=== PATIENT | male | born 1975 | race Caucasian/White ===

== ENCOUNTER 2017-05-20 04:40 | Emergency (ER) | payer OTHER ==
[2017-05-20 04:40] VITALS: BMI 30.7
[2017-05-20] MEDS ORDERED: Aluminum Hydroxide/Magnesium Hydroxide Susp (30 mL) PO STA (05:19)
[2017-05-20] MEDS ORDERED: Aluminum Hydroxide/Magnesium Hydroxide Susp (30 mL) ONE (05:35)
[2017-05-20 05:41] LABS: BASO % 0.6 % (0.0-2.0); EOS # 0.1 K/uL (0.0-0.7); EOS % 2.6 % (0.0-4.0); HEMATOCRIT 40.4 % (35.0-51.0); LYMPH # 1.9 K/uL (1.0-4.3); LYMPH % 42.9 % (20.0-40.0); MEAN CELL VOLUME 86.1 fL (80.0-94.0); MEAN CORPUSCULAR HEMOGLOBIN 30.7 pg (27.0-31.0); MEAN CORPUSCULAR HGB CONC 35.7 g/dL (33.0-37.0); MEAN PLATELET VOLUME 8.2 fL (7.2-11.7); MONO # 0.3 K/uL (0.0-0.8); MONO % 6.9 % (0.0-10.0); NRBC % 0.1 % (0.0-2.0); RED CELL DISTRIBUTION WIDTH 13.1 % (11.5-14.5); URINE BILIRUBIN NEGATIVE (NEGATIVE); URINE BLOOD NEGATIVE (NEGATIVE); URINE COLOR Yellow (YELLOW); URINE GLUCOSE (UA) 3+ mg/dL (Normal); URINE KETONE 1+ mg/dL (NEGATIVE); URINE LEUKOCYTE ESTERASE NEG Leu/uL (Negative); URINE PROTEIN 1+ mg/dL (NEGATIVE); URINE UROBILINOGEN NORMAL mg/dL (0.2-1.0); WBC URINE < 1 /hpf (0-5); WHITE BLOOD COUNT 4.4 K/uL (4.8-10.8)
[2017-05-20 05:46] LABS: CHLORIDE 96 mmol/L (98-107); SODIUM 136 mmol/L (132-148)
[2017-05-20 05:47] LABS: POTASSIUM 3.8 mmol/L (3.6-5.2)
[2017-05-20 05:49] LABS: ALB/GLOB RATIO 1.7 (1.0-2.1); ALKALINE PHOSPHATASE 77 U/L (38-126); ALT/SGPT 47 U/L (21-72); AST/SGOT 19 U/L (17-59); BILIRUBIN,TOTAL 0.6 mg/dL (0.2-1.3); BLOOD UREA NITROGEN 14 mg/dL (9-20); CARBON DIOXIDE 24 mmol/L (22-30); GFR AFRICAN-AMERICAN > 60; GLUCOSE,RANDOM 236 mg/dL (75-110); TOTAL PROTEIN 6.6 g/dL (6.3-8.3)
[2017-05-20 05:50] LABS: CALCIUM 8.3 mg/dl (8.6-10.4)
--- NOTE | 2017-05-20 06:31 | C.PDOC ---
History Of Present Illness 41 year old male with a Hx of appendectomy who presents to the ER with a complaint of diffuse intermittent abdominal pain since Saturday, associated with nausea. Patient states his last bowel movement was on Saturday; he notes he took miralax with no bowel movement. Denies vomiting and diarrhea. Time Seen by Provider: 05/20/17 04:58 Chief Complaint (Nursing): Abdominal Pain History Per: Patient, Family (), Clinical Therapist History/Exam Limitations: no limitations Onset/Duration Of Symptoms: Days Current Symptoms Are (Timing): Still Present Location Of Pain/Discomfort: Diffuse Radiation Of Pain To:: None Quality Of Discomfort: Unable To Describe Associated Symptoms: Nausea. denies: Vomiting, Diarrhea Exacerbating Factors: None Alleviating Factors: None Recent travel outside of the [place]: No Past Medical History Reviewed: Historical Data, Nursing Documentation, Vital Signs Vital Signs: Last Vital Signs Temp 97.6 F 05/20/17 06:32 Pulse 60 05/20/17 06:32 Resp 18 05/20/17 06:32 BP 120/71 05/20/17 06:32 Pulse Ox 97 05/20/17 06:36 - Medical History PMH: Diabetes, HTN, Hypercholesterolemia Surgical History: Appendectomy Family History: States: Unknown Family Hx - Social History Hx Tobacco Use: No Hx Alcohol Use: Yes (SOCIALLY) Hx Substance Use: No - Immunization History Hx Tetanus Toxoid Vaccination: No Hx Influenza Vaccination: No Hx Pneumococcal Vaccination: No Review Of Systems Constitutional: Negative for: Fever, Chills Gastrointestinal: Positive for: Nausea, Abdominal Pain, Constipation. Negative for: Vomiting, Diarrhea Physical Exam - Physical Exam Appears: Non-toxic, No Acute Distress Skin: Normal Color, Warm, Dry Head: Atraumatic, Normacephalic Eye(s): bilateral: Normal Inspection, EOMI Nose: Normal Oral Mucosa: Moist Neck: Normal ROM, Supple Chest: Symmetrical, No Tenderness Cardiovascular: Rhythm Regular Respiratory: Normal Breath Sounds, No Rales, No Rhonchi, No Wheezing Gastrointestinal/Abdominal: Soft, Tenderness (Diffuse), No Guarding, No Rebound Back: No CVA Tenderness, No Vertebral Tenderness Neurological/Psych: Oriented x3, Normal Speech, Normal Cognition ED Course And Treatment - Laboratory Results Result Diagrams: 05/20/17 05:33 05/20/17 05:33 O2 Sat by Pulse Oximetry: 97 (Room air) Pulse Ox Interpretation: Normal - Other Rad Obstructive Series x-ray X-Ray: Interpreted by Me, Viewed By Me Interpretation: Full of stool, no air fluid level Progress Note: Abdominal x-ray ordered. Maalox, toradol, and fleet enema administered. CAse endorsed to [facility] [place] pending BM and re-evaluation. Disposition - Disposition Disposition Time: 06:57 Condition: STABLE Forms: [employer] Connect (Latvian) - Clinical Impression Clinical Impression: Abdominal pain - Scribe Statement The provider has reviewed the documentation as recorded by the Scribe Richard Valente All medical record entries made by the Scribe were at my direction and personally dictated by me. I have reviewed the chart and agree that the record accurately reflects my personal performance of the history, physical exam, medical decision making, and the department course for this patient. I have also personally directed, reviewed, and agree with the discharge instructions and disposition.
[2017-05-20 06:32] VITALS: RESP 18; TEMP 97.6
[2017-05-20 09:24] VITALS: BP 125/71; PULSE 55; O2SAT 100
--- NOTE | 2017-05-20 09:39 | RAD ---
PROCEDURE: Radiographs of the chest and abdomen (obstructive series) HISTORY: abd pain COMPARISON: Chest x-ray performed 04/26/16 FINDINGS: CHEST: Examination limited by habitus and hypoinflation. Heart size appears within normal limits. No focal consolidation, significant pleural effusion, or definite pneumothorax identified.Please note that chest x-ray has limited sensitivity for the detection of pulmonary masses. ABDOMEN AND PELVIS: Nonspecific bowel gas pattern. No definite free air. Moderate constipation. No acute osseous abnormality is detected. IMPRESSION: Moderate constipation.
== END 2017-05-20 09:26 | disposition home or self-care (01) ==
LOC: C.ER 04:40
DX: R10.9 Unspecified abdominal pain (principal)
CPT/HCPCS: 74022; 80053; 81001; 83690; 85025; 96374; 99284; J1885

== ENCOUNTER 2017-09-03 22:49 | Emergency (ER) | payer SELFPAY ==
[2017-09-03 22:50] VITALS: BMI 30.7
--- NOTE | 2017-09-04 00:10 | C.PDOC ---
History Of Present Illness The patient presents to the ED for evaluation of right buttock pain which began 3 days ago. Patient states the pain radiates down his right leg. He denies recent trauma/injury, urinary/ bowel incontinence and extremity numbness/ weakness at this time. Time Seen by Provider: 09/04/17 00:09 Chief Complaint (Nursing): Back Pain History Per: Patient History/Exam Limitations: no limitations Onset/Duration Of Symptoms: Days (3) Current Symptoms Are (Timing): Still Present Quality Of Discomfort: Sharp, "Pain" Severity: Moderate Pain Scale Rating Of: 4 Previous Symptoms: denies: Prior Injury Associated Symptoms: denies: Incontinence, New Weakness, New Numbness Exacerbating Factor(s): Nothing Recent travel outside of the [place]: No Additional History Per: Patient Past Medical History Reviewed: Historical Data, Nursing Documentation, Vital Signs Vital Signs: Last Vital Signs Temp 98.8 F 09/04/17 02:02 Pulse 58 L 09/04/17 02:02 Resp 18 09/04/17 02:02 BP 105/58 L 09/04/17 02:02 Pulse Ox 98 09/04/17 02:02 - Medical History PMH: Diabetes, HTN, Hypercholesterolemia Denies: Chronic Kidney Disease Surgical History: Appendectomy Family History: States: Unknown Family Hx - Social History Hx Tobacco Use: No Hx Alcohol Use: Yes (SOCIALLY) Hx Substance Use: No - Immunization History Hx Tetanus Toxoid Vaccination: No Hx Influenza Vaccination: No Hx Pneumococcal Vaccination: No Review Of Systems Genitourinary: Negative for: Incontinence Musculoskeletal: Positive for: Leg Pain (right), Other (right buttock pain ) Skin: Negative for: Rash, Lesions, Jaundice, Bruising Neurological: Negative for: Weakness, Numbness Physical Exam - Physical Exam Appears: Non-toxic, No Acute Distress Skin: Warm, Dry, Other (4x6cm area of induration to right buttock cleft with erythema. no fluctuance ) Back: Straight Leg Raising (pain with 30 degree raise ) Extremity: Normal ROM, No Tenderness, Capillary Refill (less than 2 seconds ), No Deformity, No Swelling Pulses: Right Dorsalis Pedis: Normal Neurological/Psych: Oriented x3 Gait: Steady ED Course And Treatment - Laboratory Results Result Diagrams: 09/04/17 01:45 09/04/17 01:45 O2 Sat by Pulse Oximetry: 98 (on RA) Pulse Ox Interpretation: Normal Progress Note: Decadron PO and Motrin PO administered. Reevaluation Time: 03:58 Reassessment Condition: Improved Disposition Counseled Patient/Family Regarding: Studies Performed, Diagnosis, Need For Followup, Rx Given - Disposition Referrals: [facility] [Outside] [facility] [Outside] Disposition: HOME/ ROUTINE Disposition Time: 00:09 Condition: FAIR Additional Instructions: Please return if symptoms recur, you have fever, chills or spreading redness Prescriptions: Cephalexin [Keflex] 500 mg PO QID #28 capsule Sulfamethoxazole/Trimethoprim [Bactrim DS 800 mg-160 mg] 1 tab PO BID #14 tab traMADol [Ultram] 50 mg PO QID PRN #20 tab PRN Reason: Pain, Severe (8-10) Instructions: Rectal Abscess (ED) Forms: [employer] Connect (Albanian), Work Excuse Print Language: IRANIAN - Clinical Impression Clinical Impression: Abscess of right buttock - Scribe Statement The provider has reviewed the documentation as recorded by the Marcosibe (Lyn Momin) Provider Attestation: All medical record entries made by the Marcosibsharri were at my direction and personally dictated by me. I have reviewed the chart and agree that the record accurately reflects my personal performance of the history, physical exam, medical decision making, and the department course for this patient. I have also personally directed, reviewed, and agree with the discharge instructions and disposition.
[2017-09-04] MEDS ORDERED: Sodium Chloride 0.9% 500 ML IV ONE (01:26)
[2017-09-04] MEDS ORDERED: Vancomycin 1 gm/NS 200 ml 1 GM/200 ML BAG IVPB STA (01:28)
[2017-09-04] MEDS ORDERED: Piperacill/Tazo 3.375gm in Dex 3.375 GM/50 ML BAG IVPB STA (01:28)
[2017-09-04] MEDS ORDERED: Sodium Chloride 0.9% 1,000 ML ONE (01:46)
[2017-09-04 01:47] LABS: BASO % 0.4 % (0.0-2.0); EOS # 0.1 K/uL (0.0-0.7); EOS % 1.3 % (0.0-4.0); HEMOGLOBIN 14.4 g/dL (12.0-18.0); LYMPH # 1.9 K/uL (1.0-4.3); LYMPH % 18.6 % (20.0-40.0); MEAN CELL VOLUME 86.4 fL (80.0-94.0); MEAN CORPUSCULAR HEMOGLOBIN 30.4 pg (27.0-31.0); MEAN CORPUSCULAR HGB CONC 35.1 g/dL (33.0-37.0); MEAN PLATELET VOLUME 8.3 fL (7.2-11.7); MONO # 0.6 K/uL (0.0-0.8); NEUT # 7.4 K/uL (1.8-7.0); NEUT % 73.7 % (50.0-75.0); RBC 4.73 Mil/uL (4.40-5.90); RED CELL DISTRIBUTION WIDTH 13.1 % (11.5-14.5)
[2017-09-04 01:51] LABS: WHITE BLOOD COUNT 10.1 K/uL (4.8-10.8)
[2017-09-04 01:54] LABS: VENOUS BLOOD GAS PCO2 42 mmHg (40-60); VENOUS BLOOD GAS PO2 53 mm/Hg (30-55)
[2017-09-04 01:59] LABS: BLOOD UREA NITROGEN 21 mg/dL (9-20); CALCIUM 8.6 mg/dl (8.6-10.4); GFR AFRICAN-AMERICAN > 60; GFR NON-AFRICAN AMERICAN > 60
[2017-09-04 02:04] VITALS: RESP 18
[2017-09-04 04:10] VITALS: BP 113/69; PULSE 86; TEMP 98.4; O2SAT 99
== END 2017-09-04 04:10 | disposition home or self-care (01) ==
LOC: C.ER 22:49
DX: L02.31 Cutaneous abscess of buttock (principal); I10 Essential (primary) hypertension; E78.00 Pure hypercholesterolemia, unspecified; E11.9 Type 2 diabetes mellitus without complications
CPT/HCPCS: 80048; 82803; 85025; 87040; 96365; 96366; 96367; 96375; 99285; J1885; J2543; J3370; J7040; J8540

== ENCOUNTER 2017-09-07 00:46 | Inpatient (IN) | payer SELFPAY ==
[2017-09-07 00:51] VITALS: BMI 30.7
[2017-09-07] MEDS ORDERED: Sodium Chloride 0.9% 1,000 ML IV ONE (01:59)
--- NOTE | 2017-09-07 02:00 | C.PDOC ---
History Of Present Illness Patient presents to the ER with a complaint of right buttock pain. He was seen 2 days ago for a right buttock early abscess and was discharge on antibiotics. Patient returns now with more discomfort, fever, and purulent drainage. Denies bleeding, abdominal pain, back pain, nausea, or vomiting. Time Seen by Provider: 09/07/17 01:33 Chief Complaint (Nursing): Abnormal Skin Integrity History Per: Patient History/Exam Limitations: no limitations Onset/Duration Of Symptoms: Days Current Symptoms Are (Timing): Worse Location Of Injury: Right: Buttock (Abscess) Quality Of Symptoms: Painful, Draining Severity: Moderate Pain Scale Rating Of: 5 Recent travel outside of the [place]: No Past Medical History Reviewed: Historical Data, Nursing Documentation, Vital Signs Vital Signs: Last Vital Signs Temp 98.9 F 09/07/17 01:03 Pulse 85 09/07/17 01:03 Resp 18 09/07/17 01:03 BP 106/71 09/07/17 01:03 Pulse Ox 99 09/07/17 03:30 - Medical History PMH: Diabetes, HTN, Hypercholesterolemia Surgical History: Appendectomy Family History: States: No Known Family Hx - Social History Hx Tobacco Use: No Hx Alcohol Use: Yes (SOCIALLY) Hx Substance Use: No - Immunization History Hx Tetanus Toxoid Vaccination: No Hx Influenza Vaccination: No Hx Pneumococcal Vaccination: No Review Of Systems Constitutional: Positive for: Fever. Negative for: Chills Gastrointestinal: Negative for: Nausea, Vomiting, Abdominal Pain Genitourinary: Negative for: Dysuria, Hematuria Musculoskeletal: Positive for: Other (Right buttock pain). Negative for: Back Pain Skin: Positive for: Other (Right buttock abscess) Physical Exam - Physical Exam Appears: Non-toxic Skin: Warm, Dry Head: Normacephalic Oral Mucosa: Moist Chest: Symmetrical, No Tenderness Cardiovascular: Rhythm Regular Respiratory: No Rales, No Rhonchi, No Wheezing Gastrointestinal/Abdominal: Soft, No Tenderness Back: No CVA Tenderness, No Paraspinal Tenderness Extremity: Other (8x12cm area of induration to right buttock with small amount of purulent materal expressed with erythema, tender to palpation) Neurological/Psych: Oriented x3 ED Course And Treatment - Laboratory Results Result Diagrams: 09/07/17 02:13 09/07/17 02:13 O2 Sat by Pulse Oximetry: 99 (Room air) Pulse Ox Interpretation: Normal Progress Note: Blood work ordered. IV fluids, vancomycin, and zosyn. Disposition Discussed With Dr.: Alcon Sen Comment: accepted the pt onhis service and took over the care at 3:30 AM Doctor Will See Patient In The: ED Counseled Patient/Family Regarding: Studies Performed, Diagnosis - Disposition Referrals: Non [facility] Provider, [Primary Care Provider] - Disposition: HOSPITALIZED Disposition Time: 02:00 Condition: FAIR Forms: [employer] (Turkish) - Clinical Impression Clinical Impression: Skin lesion, Abscess, Hyperglycemia - Scribe Statement The provider has reviewed the documentation as recorded by the Scribe Richard Valente All medical record entries made by the Scribe were at my direction and personally dictated by me. I have reviewed the chart and agree that the record accurately reflects my personal performance of the history, physical exam, medical decision making, and the department course for this patient. I have also personally directed, reviewed, and agree with the discharge instructions and disposition. Decision To Admit - Pt Status Changed To: Hospital Disposition Of: Inpatient - Admit Certification Admit to Inpatient:: After my assessment, the patient will require hospitalization for at least two midnights. This is because of the severity of symptoms shown, intensity of services needed, and/or the medical risk in this patient being treated as an outpatient. - InPatient: Physician Admission Certification: I certify that this patient requires 2 or more midnights of care for the following reason:: After my assessment, the patient will require hospitalization for at least two midnights. This is because of the severity of symptoms shown, intensity of services needed, and/or the medical risk in this patient being treated as an outpatient. - . Bed Request Type: Regular Admitting Physician: Alcon Sen Patient Diagnosis: Skin lesion, Abscess, Hyperglycemia
[2017-09-07 02:18] LABS: BASO % 0.3 % (0.0-2.0); EOS # 0.1 K/uL (0.0-0.7); EOS % 0.7 % (0.0-4.0); HEMOGLOBIN 15.3 g/dL (12.0-18.0); LYMPH # 1.7 K/uL (1.0-4.3); LYMPH % 19.7 % (20.0-40.0); MEAN CELL VOLUME 87.3 fL (80.0-94.0); MEAN CORPUSCULAR HEMOGLOBIN 30.7 pg (27.0-31.0); MEAN CORPUSCULAR HGB CONC 35.2 g/dL (33.0-37.0); MEAN PLATELET VOLUME 8.5 fL (7.2-11.7); MONO # 0.8 K/uL (0.0-0.8); MONO % 9.2 % (0.0-10.0); NEUT # 6.1 K/uL (1.8-7.0); NEUT % 70.1 % (50.0-75.0); NRBC % 0.1 % (0.0-2.0); RBC 4.97 Mil/uL (4.40-5.90); WHITE BLOOD COUNT 8.6 K/uL (4.8-10.8)
[2017-09-07] MEDS ORDERED: Piperacill/Tazo 3.375gm in Dex 3.375 GM/50 ML BAG IVPB STA (02:25)
[2017-09-07 02:28] LABS: INR 1.1; PROTHROMBIN TIME 12.1 SECONDS (9.7-12.2)
[2017-09-07] MEDS ORDERED: Vancomycin 1 gm/NS 200 ml 1 GM/200 ML BAG IVPB ONE (02:30)
[2017-09-07] MEDS: Piperacillin/Tazobact 3.375 GM in Sodium Chloride 100 ML IVPB STA ×2 (02:40→02:42)
[2017-09-07 02:43] LABS: VENOUS BLOOD GAS BASE EXCESS -1.9 mmol/L (0.0-2.0); VENOUS BLOOD GAS PCO2 46 mmHg (40-60); VENOUS BLOOD GAS PO2 33 mm/Hg (30-55); VENOUS BLOOD PH 7.33 (7.32-7.43)
[2017-09-07] MEDS ORDERED: Sodium Chloride 0.9% 1,000 ML ONE (02:48)
[2017-09-07 03:17] LABS: BLOOD UREA NITROGEN 15 mg/dL (9-20); CALCIUM 8.8 mg/dl (8.6-10.4); GFR AFRICAN-AMERICAN > 60; GFR NON-AFRICAN AMERICAN > 60
[2017-09-07] MEDS ORDERED: Oxycodone/Acetaminophen 5/325 mg Tab PO PRN (03:50)
[2017-09-07] MEDS ORDERED: POLYETHYLENE GLYCOL 3350 17 GM/Dose PACKET PO PRN (03:56)
--- NOTE | 2017-09-07 04:05 | CP.PCM.HP ---
History of Present Illness - History of Present Illness History of Present Illness: General surgery H & P for Dr. Bette Eli, PGY-1 Pt S & E at bedside. 41M w/PMH sig for DM admitted for R buttock cellulitis/abscess x 1 week. Pt reports worsening redness/pain of Right buttock over the past week. Was seen in ED on 09/04 with Rx for cellulitis given. Cellulitis developed into abscess with subsequent purulent drainage 2 days ago. Pt admits to severe, constant, non radiating right buttock pain, hardness, hot skin, subjective fevers, chills , nausea, but no emesis. Also admits to constipation and OREILLY with fevers. Denies diarrhea, changes in eating habits, chest pain, SOB, abdominal pain, cough, other complaints. PMH: DM PSH: Appendectomy All: NKDA SH: Occasional ETOH use, denies tobacco or illicit drug use Present on Admission - Present on Admission Any Indicators Present on Admission: No History of DVT/PE: No History of Uncontrolled Diabetes: No Urinary Catheter: No Decubitus Ulcer Present: No Review of Systems - Review of Systems All systems: reviewed and no additional remarkable complaints except - Constitutional Constitutional: Chills, Fever, Headache (with fevers). absent: Increased Appetite - EENT Eyes: absent: Change in Vision Ears: absent: Dizziness - Cardiovascular Cardiovascular: absent: Chest Pain - Respiratory Respiratory: absent: Cough - Gastrointestinal Gastrointestinal: Constipation, Nausea. absent: Abdominal Pain, Diarrhea, Vomiting - Musculoskeletal Musculoskeletal: absent: Back Pain - Neurological Neurological: absent: Weakness - Psychiatric Psychiatric: absent: Change in Appetite Past Patient History - Infectious Disease Hx of Infectious Diseases: None - Past Medical History & Family History Past Medical History?: Yes - Past Social History Smoking Status: Never Smoked - CARDIAC Hx Hypercholesterolemia: Yes Hx Hypertension: Yes - PULMONARY Hx Respiratory Disorders: No - NEUROLOGICAL Hx Neurological Disorder: No Other/Comment: AAOX3 - HEENT Hx HEENT Problems: No - RENAL Hx Chronic Kidney Disease: No - ENDOCRINE/METABOLIC Hx Diabetes Mellitus Type 2: Yes - HEMATOLOGICAL/ONCOLOGICAL Hx Blood Disorders: No Hx Blood Transfusions: No - INTEGUMENTARY Hx Dermatological Problems: No - MUSCULOSKELETAL/RHEUMATOLOGICAL Hx Musculoskeletal Disorders: No Hx Falls: No - GASTROINTESTINAL Hx Gastrointestinal Disorders: No - GENITOURINARY/GYNECOLOGICAL Hx Genitourinary Disorders: No - PSYCHIATRIC Hx Substance Use: No - SURGICAL HISTORY Hx Appendectomy: Yes - ANESTHESIA Hx Anesthesia: Yes Hx Anesthesia Reactions: No Hx Malignant Hyperthermia: No Meds Allergies/Adverse Reactions: Allergies Allergy/AdvReac Type Severity Reaction Status Date / Time No Known Allergies Allergy Verified 09/07/17 01:02 Physical Exam - Constitutional Appears: Non-toxic, No Acute Distress - Head Exam Head Exam: ATRAUMATIC, NORMAL INSPECTION, NORMOCEPHALIC - Eye Exam Eye Exam: EOMI, Normal appearance - ENT Exam ENT Exam: Mucous Membranes Moist, Normal Exam - Neck Exam Neck exam: Positive for: Full Rom, Normal Inspection - Respiratory Exam Respiratory Exam: Clear to Auscultation Bilateral, NORMAL BREATHING PATTERN - Cardiovascular Exam Cardiovascular Exam: REGULAR RHYTHM, +S1, +S2 - GI/Abdominal Exam GI & Abdominal Exam: Normal Bowel Sounds, Soft. absent: Tenderness - Extremities Exam Extremities exam: Positive for: normal inspection. Negative for: pedal edema - Back Exam Back exam: NORMAL INSPECTION - Neurological Exam Neurological exam: Alert, CN II-XII Intact, Oriented x3 - Psychiatric Exam Psychiatric exam: Normal Affect, Normal Mood - Skin Skin Exam: Erythema, Warm Additional comments: Right buttock/gluteal cleft with large area of induration - approximately 10 x 6 cm , draining purulent material of inner buttock opening, erythematous, small area of fluctuance on inner aspect, tender to palpation, with increased warmth to area Results - Vital Signs Recent Vital Signs: Last Vital Signs Temp 98.9 F 09/07/17 01:03 Pulse 85 09/07/17 01:03 Resp 18 09/07/17 01:03 BP 106/71 09/07/17 01:03 Pulse Ox 99 09/07/17 03:42 - Labs Result Diagrams: 09/07/17 02:13 09/07/17 02:13 Labs: Laboratory Results - last 24 hr 09/07/17 09/07/17 09/07/17 02:13 02:13 02:13 WBC 8.6 RBC 4.97 Hgb 15.3 Hct 43.4 MCV 87.3 MCH 30.7 MCHC 35.2 RDW 13.0 Plt Count 194 MPV 8.5 Neut % (Auto) 70.1 Lymph % (Auto) 19.7 L Bowman % (Auto) 9.2 Eos % (Auto) 0.7 Baso % (Auto) 0.3 Neut # 6.1 Lymph # 1.7 Bowman # 0.8 Eos # 0.1 Baso # 0.0 PT 12.1 INR 1.1 APTT 26 pO2 VBG pH VBG pCO2 VBG HCO3 VBG Total CO2 VBG O2 Sat (Calc) VBG Base Excess VBG Potassium Glucose Lactate Sodium 126 L Potassium 4.1 Chloride 91 L Carbon Dioxide 27 Anion Gap 13 BUN 15 Creatinine 0.7 L Est GFR ( Amer) > 60 Est GFR (Non-Af Amer) > 60 Random Glucose 298 H Calcium 8.8 Venous Blood Potassium 09/07/17 02:35 WBC RBC Hgb Hct MCV MCH MCHC RDW Plt Count MPV Neut % (Auto) Lymph % (Auto) Bowman % (Auto) Eos % (Auto) Baso % (Auto) Neut # Lymph # Bowman # Eos # Baso # PT INR APTT pO2 33 VBG pH 7.33 VBG pCO2 46 VBG HCO3 22.4 VBG Total CO2 25.7 VBG O2 Sat (Calc) 70.2 H VBG Base Excess -1.9 L VBG Potassium 3.8 Glucose 281 H Lactate 1.1 Sodium 132.0 Potassium Chloride 97.0 L Carbon Dioxide Anion Gap BUN Creatinine Est GFR ( Amer) Est GFR (Non-Af Amer) Random Glucose Calcium Venous Blood Potassium 3.8 Assessment & Plan - Assessment and Plan (Free Text) Assessment: 41M w/PMH sig for DM admitted for Right buttock cellulitis & abscess, currently draining Plan: Admit to med-surg VS Q4H Warm compresses to area Abx- Vanc, zosyn Anti-emetic Pain mgmt Activity ad tracey Diabetic diet Sliding scale insulin Accuchecks labs in AM TEDS/SCDs May consider I & D if fluctuance develops more Will DW attending Alcira, PGY-1 - Date & Time Date: 09/07/17 Time: 04:05 Decision To Admit - Pt Status Changed To: Hospital Disposition Of: Observation - . Bed Request Type: Regular Admitting Physician: Alcon Sen
[2017-09-07] MEDS: Vancomycin 1 gm/NS 200 ml 1 GM/200 ML BAG IVPB SCH (04:20)
[2017-09-07 06:57] VITALS: RESP 20
[2017-09-07] MEDS: (Novolin R) Insulin Human Regular 100 units/ml vial SC SCH ×4 (08:10→21:27)
[2017-09-07] MEDS: Lactated Ringer's 1,000 ML IV SCH ×3 (08:27→21:46)
[2017-09-07] MEDS: Piperacill/Tazo 3.375gm in Dex 3.375 GM/50 ML BAG IVPB SCH ×3 (08:28→20:08)
[2017-09-07] MEDS ORDERED: Lidocaine 1%/Epinephrine 1:100000 30 ml vial IJ ONE (10:19)
[2017-09-07] MEDS ORDERED: DiphenhydrAMINE 50 mg/ml Inj IVP STA (10:21)
[2017-09-07] MEDS ORDERED: Lidocaine 1% Inj (20ml) INJ ONE (10:45)
--- NOTE | 2017-09-07 11:45 | PCM.SURG1 ---
Surgeon's Initial Post Op Note - Surgeon's Notes Surgeon: Dr. Sen Plate Finisher: gail Huang PGY2 Type of Anesthesia: Local, Other Pre-Operative Diagnosis: R gluteal abscess Operative Findings: 20cc purulent abscess Post-Operative Diagnosis: R gluteal/ perirectal abscess Operation Performed: Incision and drainage of R perirectal abscess Specimen/Specimens Removed: abscess Estimated Blood Loss: EBL {In ML}: 5 Blood Products Given: N/A Drains Used: No Drains Post-Op Condition: Good Date of Surgery/Procedure: 09/07/17 Time of Surgery/Procedure: 11:45
[2017-09-07] MEDS ORDERED: Rosuvastatin Calcium 2.5 mg Tab PO SCH (22:00)
[2017-09-08] MEDS: Piperacill/Tazo 3.375gm in Dex 3.375 GM/50 ML BAG IVPB SCH ×2 (02:10→08:38)
[2017-09-08] MEDS: Vancomycin 1 gm/NS 200 ml 1 GM/200 ML BAG IVPB SCH (03:43)
[2017-09-08 08:30] LABS: BASO % 0.4 % (0.0-2.0); EOS # 0.1 K/uL (0.0-0.7); EOS % 1.4 % (0.0-4.0); HEMOGLOBIN 14.2 g/dL (12.0-18.0); LYMPH # 2.3 K/uL (1.0-4.3); LYMPH % 34.1 % (20.0-40.0); MEAN CELL VOLUME 86.8 fL (80.0-94.0); MEAN CORPUSCULAR HEMOGLOBIN 30.7 pg (27.0-31.0); MEAN CORPUSCULAR HGB CONC 35.3 g/dL (33.0-37.0); MEAN PLATELET VOLUME 8.4 fL (7.2-11.7); MONO # 0.9 K/uL (0.0-0.8); MONO % 12.8 % (0.0-10.0); NEUT # 3.5 K/uL (1.8-7.0); NEUT % 51.3 % (50.0-75.0); RBC 4.62 Mil/uL (4.40-5.90); RED CELL DISTRIBUTION WIDTH 12.8 % (11.5-14.5); WHITE BLOOD COUNT 6.9 K/uL (4.8-10.8)
[2017-09-08 08:31] VITALS: BP 123/69; PULSE 70; TEMP 97.4; O2SAT 100
[2017-09-08] MEDS: (Novolin R) Insulin Human Regular 100 units/ml vial SC SCH ×2 (08:38→11:41)
[2017-09-08 09:00] LABS: BLOOD UREA NITROGEN 12 mg/dL (9-20); GFR AFRICAN-AMERICAN > 60; GFR NON-AFRICAN AMERICAN > 60
--- NOTE | 2017-09-08 09:34 | CP.PCM.DIS ---
Provider - Provider Date of Admission: 09/07/17 03:40 Attending physician: Alcon Sen MD Primary care physician: Non [facility] Provider Time Spent in preparation of Discharge (in minutes): 45 Hospital Course - Lab Results Lab Results: Micro Results 09/07/17 15:24 Abscess - Buttock-Right Gram Stain - Final 09/07/17 15:24 Abscess - Buttock-Right Wound Culture - Preliminary NO GROWTH AFTER 24 HOURS 09/07/17 01:03 Blood Blood Culture - Preliminary NO GROWTH AFTER 24 HOURS 09/07/17 01:33 Blood Blood Culture - Preliminary NO GROWTH AFTER 24 HOURS Most Recent Lab Values WBC 6.9 K/uL (4.8-10.8) 09/08/17 08:16 RBC 4.62 Mil/uL (4.40-5.90) 09/08/17 08:16 Hgb 14.2 g/dL (12.0-18.0) 09/08/17 08:16 Hct 40.1 % (35.0-51.0) 09/08/17 08:16 MCV 86.8 fL (80.0-94.0) 09/08/17 08:16 MCH 30.7 pg (27.0-31.0) 09/08/17 08:16 MCHC 35.3 g/dL (33.0-37.0) 09/08/17 08:16 RDW 12.8 % (11.5-14.5) 09/08/17 08:16 Plt Count 190 K/uL (130-400) 09/08/17 08:16 MPV 8.4 fL (7.2-11.7) 09/08/17 08:16 Neut % (Auto) 51.3 % (50.0-75.0) 09/08/17 08:16 Lymph % (Auto) 34.1 % (20.0-40.0) 09/08/17 08:16 [place] % (Auto) 12.8 % (0.0-10.0) H 09/08/17 08:16 Eos % (Auto) 1.4 % (0.0-4.0) 09/08/17 08:16 Baso % (Auto) 0.4 % (0.0-2.0) 09/08/17 08:16 Neut # 3.5 K/uL (1.8-7.0) 09/08/17 08:16 Lymph # 2.3 K/uL (1.0-4.3) 09/08/17 08:16 [place] # 0.9 K/uL (0.0-0.8) H 09/08/17 08:16 Eos # 0.1 K/uL (0.0-0.7) 09/08/17 08:16 Baso # 0.0 K/uL (0.0-0.2) 09/08/17 08:16 PT 12.1 SECONDS (9.7-12.2) 09/07/17 02:13 INR 1.1 09/07/17 02:13 APTT 26 SECONDS (21-34) 09/07/17 02:13 pO2 33 mm/Hg (30-55) 09/07/17 02:35 VBG pH 7.33 (7.32-7.43) 09/07/17 02:35 VBG pCO2 46 mmHg (40-60) 09/07/17 02:35 VBG HCO3 22.4 mmol/L 09/07/17 02:35 VBG Total CO2 25.7 mmol/L (22-28) 09/07/17 02:35 VBG O2 Sat (Calc) 70.2 % (40-65) H 09/07/17 02:35 VBG Base Excess -1.9 mmol/L (0.0-2.0) L 09/07/17 02:35 VBG Potassium 3.8 mmol/L (3.6-5.2) 09/07/17 02:35 Sodium 132.0 mmol/l (132-148) 09/07/17 02:35 Chloride 97.0 mmol/L (98-107) L 09/07/17 02:35 Glucose 281 mg/dl (75-110) H 09/07/17 02:35 Lactate 1.1 mmol/L (0.7-2.1) 09/07/17 02:35 Sodium 128 mmol/L (132-148) L 09/08/17 08:16 Potassium 4.2 mmol/L (3.6-5.2) 09/08/17 08:16 Chloride 92 mmol/L (98-107) L 09/08/17 08:16 Carbon Dioxide 29 mmol/L (22-30) 09/08/17 08:16 Anion Gap 12 (10-20) 09/08/17 08:16 BUN 12 mg/dL (9-20) 09/08/17 08:16 Creatinine 0.7 mg/dL (0.8-1.5) L 09/08/17 08:16 Est GFR ( Amer) > 60 09/08/17 08:16 Est GFR (Non-Af Amer) > 60 09/08/17 08:16 POC Glucose (mg/dL) 273 mg/dL (65-110) H 09/08/17 06:11 Random Glucose 251 mg/dL (75-110) H 09/08/17 08:16 Calcium 9.0 mg/dl (8.6-10.4) 09/08/17 08:16 Venous Blood Potassium 3.8 mmol/L (3.6-5.2) 09/07/17 02:35 - Hospital Course Hospital Course: 41 M came w rectal pain and swelling. I &D was performed. Pt tolerated it well. Packing changed the next day. WBC was wnl. Pt is cleared to go home with antibiotic Instructed to Call Dr. Sen's office to make appointment to visit next week . Ok to take shower Take antibiotic twice a day with meal for 1 week. Take stool softer as needed. Discharge Exam - Head Exam Head Exam: ATRAUMATIC, NORMAL INSPECTION, NORMOCEPHALIC Discharge Plan - Discharge Medications Prescriptions: Ciprofloxacin [Cipro] 500 mg PO BID #14 tab Docusate Sodium [Colace] 100 mg PO DIAL PRN #10 capsule PRN Reason: Constipation Metronidazole [Flagyl] 500 mg PO BID #14 tablet oxyCODONE/Acetaminophen [Percocet 5/325 mg Tab] 1 tab PO Q4 PRN #15 tab PRN Reason: Pain, Moderate (4-7) - Follow Up Plan Condition: FAIR Disposition: HOME/ ROUTINE Instructions: Abscess (GEN), Rectal Abscess (DC) Additional Instructions: Call Dr. Sen's office to make appointment to visit next week . Ok to take shower Take antibiotic twice a day with meal for 1 week. Take stool softer as needed. Referrals: Alcon Sen MD [Staff Provider] - Non [facility] Provider, [Primary Care Provider] -
[2017-09-08] MEDS ORDERED: Influenza Vaccine 60 mcg/0.5 mL SYR (4YR UP) IM ONE ×2 (10:00→11:30)
[2017-09-08] MEDS ORDERED: Pneumococcal 23-Valent Vaccine IM ONE ×2 (10:00→11:30)
[2017-09-08] MEDS: Lactated Ringer's 1,000 ML IV SCH (12:40)
== END 2017-09-08 14:30 | disposition home or self-care (01) | DRG 394 ==
LOC: C.ER 00:46 → SUPCPDRO 00:46 → C.9E 03:40 → C.6T 06:21
PROVIDERS: ADMIT Surgery; ATTEND Surgery
PROC: 0D9P3ZZ Drainage of Rectum, Percutaneous Approach (ICD-10-PCS; principal; 2017-09-07)
DX: K61.1 Rectal abscess (principal); L02.31 Cutaneous abscess of buttock; L03.317 Cellulitis of buttock; B95.2 Enterococcus as the cause of diseases classified elsewhere; I10 Essential (primary) hypertension; K59.00 Constipation, unspecified; E78.00 Pure hypercholesterolemia, unspecified; Z90.49 Acquired absence of other specified parts of digestive tract

== ENCOUNTER 2018-04-02 12:17 | Emergency (ER) | payer OTHER ==
[2018-04-02 12:17] VITALS: BMI 30.7
[2018-04-02 12:36] VITALS: TEMP 97.8
[2018-04-02 14:12] LABS: BASO % 0.7 % (0.0-2.0); EOS # 0.1 K/uL (0.0-0.7); EOS % 1.7 % (0.0-4.0); HEMOGLOBIN 14.3 g/dL (12.0-18.0); LYMPH # 2.1 K/uL (1.0-4.3); LYMPH % 43.4 % (20.0-40.0); MEAN CELL VOLUME 88.6 fL (80.0-94.0); MEAN CORPUSCULAR HEMOGLOBIN 31.5 pg (27.0-31.0); MEAN CORPUSCULAR HGB CONC 35.6 g/dL (33.0-37.0); MEAN PLATELET VOLUME 7.7 fL (7.2-11.7); MONO # 0.3 K/uL (0.0-0.8); MONO % 5.9 % (0.0-10.0); NEUT # 2.4 K/uL (1.8-7.0); NEUT % 48.3 % (50.0-75.0); RBC 4.55 Mil/uL (4.40-5.90); RED CELL DISTRIBUTION WIDTH 13.3 % (11.5-14.5); WHITE BLOOD COUNT 4.9 K/uL (4.8-10.8)
[2018-04-02 14:14] LABS: SQUAMOUS EPITHIAL < 1 /hpf (0-5); URINE BILIRUBIN NEGATIVE (NEGATIVE); URINE BLOOD NEGATIVE (NEGATIVE); URINE CLARITY Hazy (Clear); URINE COLOR Yellow (YELLOW); URINE GLUCOSE (UA) 1+ mg/dL (Normal); URINE LEUKOCYTE ESTERASE NEG Leu/uL (Negative); URINE PROTEIN 1+ mg/dL (NEGATIVE)
[2018-04-02 14:33] LABS: ALB/GLOB RATIO 1.7 (1.0-2.1); ALBUMIN 4.5 g/dL (3.5-5.0); ALT/SGPT 67 U/L (21-72); AST/SGOT 40 U/L (17-59); BLOOD UREA NITROGEN 18 mg/dL (9-20); CALCIUM 9.7 mg/dl (8.6-10.4); GFR AFRICAN-AMERICAN > 60; GFR NON-AFRICAN AMERICAN > 60
[2018-04-02] MEDS ORDERED: Sodium Chloride 0.9% 1,000 ML ONE (15:02)
--- NOTE | 2018-04-02 15:03 | C.PDOC ---
History Of Present Illness 42yo male, comes to ER with complaints of 1.5 months of intermittent left testicle swelling and pain. Patient states for the past 4 days, the testicle has been persistently swollen and painful, prompting the ER visit. He states the pain is also radiating to his left flank and he has dysuria as well. Patient denies any fever, chills, trauma or hematuria. No other complaints. Time Seen by Provider: 04/02/18 13:20 Chief Complaint (Nursing): Male Genitourinary History Per: Patient History/Exam Limitations: no limitations Onset/Duration Of Symptoms: Days (4) Quality Of Discomfort: "Pain" Associated Symptoms: Urinary Symptoms Past Medical History Reviewed: Historical Data, Nursing Documentation, Vital Signs Vital Signs: Last Vital Signs Temp 97.8 F 04/02/18 12:31 Pulse 65 04/02/18 12:31 Resp 20 04/02/18 12:31 BP 114/75 04/02/18 12:31 Pulse Ox 97 04/02/18 15:18 - Medical History PMH: Diabetes, HTN, Hypercholesterolemia Denies: Chronic Kidney Disease Surgical History: Appendectomy - [facility] Procedures DRAINAGE OF RECTUM, PERCUTANEOUS APPROACH (09/07/17) Family History: States: Unknown Family Hx - Social History Hx Tobacco Use: No Hx Alcohol Use: Yes Hx Substance Use: No - Immunization History Hx Tetanus Toxoid Vaccination: Yes Hx Influenza Vaccination: Yes Hx Pneumococcal Vaccination: Yes Review Of Systems Constitutional: Negative for: Fever, Chills Gastrointestinal: Positive for: Other (right flank pain). Negative for: Nausea , Vomiting, Abdominal Pain Genitourinary: Positive for: Dysuria, Other (left testicular pain and swelling) . Negative for: Hematuria Physical Exam - Physical Exam Appears: Non-toxic Skin: Normal Color, Dry Head: Atraumatic, Normacephalic Eye(s): bilateral: Normal Inspection Neck: Supple Chest: Symmetrical Cardiovascular: Rhythm Regular Respiratory: Normal Breath Sounds Gastrointestinal/Abdominal: Soft, No Tenderness, No Guarding, No Rebound Back: Normal Inspection, No CVA Tenderness Male Genital: Testicular Tenderness (left tesitcle diffuse tenderness), Testicular Swelling (left testicle diffuse swelling) Neurological/Psych: Oriented x3 ED Course And Treatment - Laboratory Results Result Diagrams: 04/02/18 14:03 04/02/18 14:03 Lab Interpretation: No Acute Changes O2 Sat by Pulse Oximetry: 97 (RA) Pulse Ox Interpretation: Normal - CT Scan/US Testicular ultrasound Other Rad Studies (CT/US): Read By Radiologist, Radiology Report Reviewed CT/US Interpretation: Accession No. : [id number]. Patient Name / ID : JENA HUSAIN / [id number]. Exam Date : 04/02/2018 13:57:44 ( Approved ). Study Comment : Sex / Age : M / 42Y. Creator : Sonido Mueller MD. Dictator : Sonido Mueller MD. 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 Approver2 : Report Date : 04/02/2018 15:17:50. My Comment : . Date of service: 04/02/2018. HISTORY: swelling and pain lt testes. TECHNIQUE : Realtime sonography through the scrotum with color and doppler flow. COMPARISON: None Available. FINDINGS: RIGHT TESTICLE: Measures 4.5 x 2.3 x 2.8 cm. Homogeneous echotexture. No mass. Microlithiasis noted with scattered punctate calcifications. Normal flow. RIGHT EPIDIDYMIS: Normal size, morphology and vascularity. LEFT TESTICLE: Measures 4.0 x 2.6 x 2.4 cm. Homogeneous echotexture. No mass. Microlithiasis. Normal flow. LEFT EPIDIDYMIS: Normal size, morphology and vascularity. HYDROCELE: Minimal complex right hydrocele. Large left simple hydrocele. VARICOCELE: None. OTHER FINDINGS: None. IMPRESSION: Large simple left hydrocele. Bilateral testicular microlithiasis. Minimal complex right hydrocele. Reevaluation Time: 15:30 Reassessment Condition: Unchanged Medical Decision Making Medical Decision Making: Plan: * Labs * Urinalysis * Urine culture * US Testicular Disposition Counseled Patient/Family Regarding: Studies Performed, Diagnosis, Need For Followup, Rx Given - Disposition Referrals: Rick Fontenot MD [Staff Provider] - Disposition: HOME/ ROUTINE Disposition Time: 15:31 Condition: STABLE Prescriptions: Acetaminophen with Codeine [Tylenol with Codeine #3 Tablet] 1 each PO Q4 PRN # 10 tablet PRN Reason: Pain, Moderate (4-7) Instructions: Hydrocele, Hydrocele Repair Forms: [employer] (Bhutanese) Print Language: SETSWANA - Clinical Impression Clinical Impression: Left hydrocele - Scribe Statement The provider has reviewed the documentation as recorded by the Rona Mo Provider Attestation: All medical record entries made by the Rona were at my direction and personally dictated by me. I have reviewed the chart and agree that the record accurately reflects my personal performance of the history, physical exam, medical decision making, and the department course for this patient. I have also personally directed, reviewed, and agree with the discharge instructions and disposition.
--- NOTE | 2018-04-02 15:19 | US ---
Date of service: 04/02/2018 HISTORY: swelling and pain lt testes TECHNIQUE: Realtime sonography through the scrotum with color and doppler flow. COMPARISON: None Available. FINDINGS: RIGHT TESTICLE: Measures 4.5 x 2.3 x 2.8 cm. Homogeneous echotexture. No mass. Microlithiasis noted with scattered punctate calcifications. Normal flow. RIGHT EPIDIDYMIS: Normal size, morphology and vascularity. LEFT TESTICLE: Measures 4.0 x 2.6 x 2.4 cm. Homogeneous echotexture. No mass. Microlithiasis. Normal flow. LEFT EPIDIDYMIS: Normal size, morphology and vascularity. HYDROCELE: Minimal complex right hydrocele. Large left simple hydrocele. VARICOCELE: None. OTHER FINDINGS: None. IMPRESSION: Large simple left hydrocele. Bilateral testicular microlithiasis. Minimal complex right hydrocele.
[2018-04-02] MEDS: Sodium Chloride 0.9% 1,000 ML IV ONE (15:26)
[2018-04-02 15:59] VITALS: BP 111/76; PULSE 88; RESP 17; O2SAT 98
== END 2018-04-02 15:57 | disposition home or self-care (01) ==
LOC: C.ER 12:17 → EEVIPCON 12:17 → C.ER 15:57
DX: N43.3 Hydrocele, unspecified (principal)
CPT/HCPCS: 76870; 80053; 81001; 85025; 87086; 99284; J7030